=== PATIENT | female | born 1950 | race Caucasian/White ===

== ENCOUNTER 2021-05-14 13:39 | Inpatient (IN) | payer MEDICARE, BC ==
[~2021-05-14] VITALS: Ht 167.6 cm; Wt 166.0 kg
[2021-05-14] MEDS ORDERED: normal saline 1000ml 1,000 ML IV ONE (16:35)
[2021-05-14] MEDS ORDERED: metroNIDAZOLE-Flagyl 500mg/NS 100 ML IV ONE (16:40)
[2021-05-14] MEDS ORDERED: levoFLOXACIN-Levaquin 250mg/D5 50 ML IV ONE ×2 (16:40→17:05)
[2021-05-14 17:00] LABS: CLARITY,URINE CLEAR (Clear); COLOR,URINE YELLOW (Yellow); GLUCOSE, URINE NEGATIVE (Neg); KETONES,URINE 15 mg/dl (Neg); LEUKOCYTE ESTERASE ,URINE NEGATIVE (Neg); NITRITES, URINE NEGATIVE (Neg); OCCULT BLOOD,URINE NEGATIVE (Neg); PH,URINE 5.5 (4.8-8.0); PROTEIN,URINE NEGATIVE (Neg); UROBILINOGEN,URINE 0.2 E.U/dL (0.2-1.0)
[2021-05-14 17:01] LABS: UA COLLECTION TYPE VOIDED
[2021-05-14 17:08] LABS: BASOPHILS % (AUTO) 0.2 % (0-1); EOSINOPHILS % (AUTO) 0.1 % (0-6); HEMATOCRIT 40.4 % (35.0-45.0); HEMOGLOBIN 13.3 g/dl (12.0-16.0); LYMPHOCYTES # (AUTO) 0.8 X10'3 (1.1-4.8); LYMPHOCYTES % (AUTO) 4.4 % (21-51); MEAN CORPUSCULAR HEMOGLOBIN 31.1 PG (27.0-31.0); MEAN CORPUSCULAR VOLUME 94.1 FL (78-98); MEAN PLATELET VOLUME 8.6 FL (7.4-10.4); MONOCYTES # (AUTO) 1.3 X10'3 (0-0.9); MONOCYTES % (AUTO) 7.1 % (2-12); NEUTROPHILS # (AUTO) 15.5 X10'3 (1.8-7.7); NEUTROPHILS % (AUTO) 88.2 % (42-75); PLATELET COUNT 352 X10'3 (140-440); RED BLOOD COUNT 4.29 X10'6 (4.20-5.60); WHITE BLOOD COUNT 17.6 X10'3 (4.5-11.0)
[2021-05-14 17:17] LABS: ALANINE AMINOTRANSFERASE 43 U/L (12-78); ALBUMIN/GLOBULIN RATIO 1.1 (1.1-1.5); ALKALINE PHOSPHATASE 66 IU/L (46-116); ANION GAP 16 (8-16); ASPARTATE AMINO TRANSFERASE 24 U/L (10-37); BLOOD UREA NITROGEN 23 MG/DL (7-18); BUN/CREATININE RATIO 14.6 (6.6-38.0); CALCIUM 8.4 MG/DL (8.5-10.1); CHLORIDE 102 MMOL/L (99-107); CREATININE 1.58 MG/DL (0.40-0.90); GLUCOSE 133 MG/DL (70-104); LIPASE 57 U/L (73-393); POTASSIUM 3.2 MMOL/L (3.5-5.1); SODIUM 142 MMOL/L (135-145); TOTAL PROTEIN 7.7 G/DL (6.4-8.2); eGFR 32 ML/MIN
[2021-05-14 17:30] LABS: BILIRUBIN,TOTAL 0.6 MG/DL (0.1-1.0)
[2021-05-14] MEDS ORDERED: potassium Cl 40 mEq/0.45% sodium chloride IV soln 520ml IV ONE (17:35)
[2021-05-14] MEDS ORDERED: ATEN-169 PO (17:42)
[2021-05-14] MEDS ORDERED: LOSA100T57 PO (17:42)
[2021-05-14] MEDS ORDERED: AMLO5TAB4 PO (17:42)
[2021-05-14] MEDS ORDERED: ATOR20TA PO (17:42)
[2021-05-14] MEDS ORDERED: LOP12.5T PO (17:42)
[2021-05-14] MEDS ORDERED: potassium Cl 40MEQ/1/2NS 520ml 520 ML IV ONE (17:45)
[2021-05-14] MEDS ORDERED: HYDR25TA5 PO (17:52)
[2021-05-14 18:30] LABS: PARTIAL THROMBOPLASTIN TIME 22 SECONDS (22-32)
[2021-05-14] MEDS ORDERED: ondansetron/PF 4mg/2ml inj IV PRN ×3 (19:25→23:50)
[2021-05-14] MEDS ORDERED: acetaminophen 325mg tablet PO PRN (19:25)
[2021-05-14] MEDS ORDERED: potassium Cl 40MEQ/1/2NS 520ml 520 ML IV PRN ×2 (19:25)
[2021-05-14] MEDS ORDERED: morphine 2 MG/ML inj. syringe IV PRN ×3 (19:25→22:40)
[2021-05-14] MEDS ORDERED: sevoflurane 250ml liquid IH ONE (19:55)
[2021-05-14] MEDS ORDERED: neostigmine methylsulfate 1 MG/ML 10ml vial ONE (19:55)
[2021-05-14] MEDS ORDERED: glycopyrrolate 0.2mg/ml inj ONE (19:55)
[2021-05-14] MEDS ORDERED: levoFLOXACIN-Levaquin 750MG/D5 150 ML IV STA (19:59)
[2021-05-14] MEDS: K and/or MAG REPLACEMENT MC SCH (20:00)
[2021-05-14] MEDS ORDERED: fentaNYL /PF 50mcg/ml 5ml ampule ONE (20:02)
[2021-05-14] MEDS ORDERED: midazolam 1 mg/ML 2ml injection ONE ×2 (20:02→20:11)
[2021-05-14] MEDS ORDERED: dexamethasone sod phosphate 4mg/ml inj. ONE (20:04)
[2021-05-14] MEDS ORDERED: LIDOcaine 2% (20mg/ml) 5ml vial ONE (20:04)
[2021-05-14] MEDS ORDERED: propofol inj 20 ML IV ONE (20:04)
[2021-05-14] MEDS ORDERED: rocuronium 10mg/ml inj IV ONE ×2 (20:04→23:13)
[2021-05-14] MEDS ORDERED: ondansetron/PF 4mg/2ml inj ONE (20:27)
[2021-05-14] MEDS ORDERED: INDOCYANINE GREEN 25 MG/10 ML VIAL IV ONE (22:20)
[2021-05-14] MEDS ORDERED: proCHLORperazine 10 MG/2 ml inj IV PRN (22:40)
[2021-05-14] MEDS ORDERED: meperidine/PF 25mg/ml syringe IV PRN ×3 (22:40)
[2021-05-14] MEDS ORDERED: morphine 4 MG/ML inj SYRINge IV PRN (22:40)
[2021-05-14] MEDS ORDERED: ringers solution, lacted 1,000 ML IV SCH (22:40)
[2021-05-14] MEDS ORDERED: BUPIVAcaine 0.5% inj/PF 30 ML ONE (23:10)
[2021-05-14] MEDS ORDERED: acetaminophen 1,000mg/100ml IV 100 ML IV ONE (23:12)
--- NOTE | 2021-05-14 23:45 | NUR ---
ASSUME CARE PT AROUSABLE TO NAME VSS NO DISTRESS, ABD DRESSING CDI WITH TYLER TO SUCTION. CONT TO MONTIOR Addendum: 05/15/21 at 0015 by Pricila Sams RN Amended: Links added.
[2021-05-14 23:55] VITALS: BP 97/40
[2021-05-15] VITALS (15 sets, daily range): BP systolic 101–115; BP diastolic 43–80
[2021-05-15] MEDS ORDERED: metroNIDAZOLE-Flagyl 500mg/NS 100 ML IV SCH
--- NOTE | 2021-05-15 00:18 | NUR ---
PT MORE AWAKE FAMILY AT BEDSIDE UPDATED ON PLAN OF CARE AND ROOM # PROVIDED. PT STATES PAIN TO ABD 02/01 MED WITH DEMEROL 25MG NO OTHER CHANGES CONT TO MONITOR. Addendum: 05/15/21 at 0019 by Pricila Sams RN Amended: Links added.
--- NOTE | 2021-05-15 00:23 | NUR ---
PT DENIES PAIN VSS NO DISTRESS EMPTY 100ML SERSANG FLUID FROM TYLER, PT MEETS CRITERIA TO DC TO HER ROOM REPORT CALLED TO MAYELIN PECK. Addendum: 05/15/21 at 0024 by Pricila Sams RN Amended: Links added.
[2021-05-15] MEDS: potassium Cl 20mEq in NS 1,000 ML IV SCH ×4 (01:20→21:23)
[2021-05-15 06:24] LABS: BASOPHILS % (AUTO) 0.1 % (0-1); EOSINOPHILS % (AUTO) 0 % (0-6); HEMATOCRIT 33.7 % (35.0-45.0); HEMOGLOBIN 11.4 g/dl (12.0-16.0); LYMPHOCYTES # (AUTO) 0.4 X10'3 (1.1-4.8); LYMPHOCYTES % (AUTO) 2.9 % (21-51); MEAN CORPUSCULAR HEMOGLOBIN 31.6 PG (27.0-31.0); MEAN CORPUSCULAR HGB CONC 33.9 g/dL (33.0-36.5); MEAN CORPUSCULAR VOLUME 93.4 FL (78-98); MEAN PLATELET VOLUME 9.1 FL (7.4-10.4); MONOCYTES # (AUTO) 1.2 X10'3 (0-0.9); NEUTROPHILS # (AUTO) 13.3 X10'3 (1.8-7.7); PLATELET COUNT 267 X10'3 (140-440); RED BLOOD COUNT 3.61 X10'6 (4.20-5.60); RED CELL DISTRIBUTION WIDTH 13.9 % (11.5-14.5); WHITE BLOOD COUNT 14.9 X10'3 (4.5-11.0)
[2021-05-15 06:28] LABS: ALANINE AMINOTRANSFERASE 37 U/L (12-78); ALBUMIN 2.8 G/DL (3.4-5.0); ALBUMIN/GLOBULIN RATIO 0.8 (1.1-1.5); ALKALINE PHOSPHATASE 49 IU/L (46-116); ANION GAP 14 (8-16); ASPARTATE AMINO TRANSFERASE 21 U/L (10-37); BILIRUBIN,TOTAL 0.8 MG/DL (0.1-1.0); BLOOD UREA NITROGEN 19 MG/DL (7-18); BUN/CREATININE RATIO 14.3 (6.6-38.0); CALCIUM 7.4 MG/DL (8.5-10.1); CHLORIDE 107 MMOL/L (99-107); CREATININE 1.33 MG/DL (0.40-0.90); GLUCOSE 176 MG/DL (70-104); SODIUM 142 MMOL/L (135-145); TOTAL CARBON DIOXIDE 21.3 MMOL/L (24-32); TOTAL PROTEIN 6.1 G/DL (6.4-8.2); eGFR 39 ML/MIN
--- NOTE | 2021-05-15 07:33 | NUR ---
Patient in room [facility] 358. I have received report from Grace PECK and had the opportunity to ask questions and assume patient care.
[2021-05-15] MEDS: amLODIPine 5mg tablet PO SCH (08:00)
[2021-05-15] MEDS: atenolol 50mg tablet PO SCH (08:00)
[2021-05-15] MEDS ORDERED: levoFLOXACIN-Levaquin 500mg/D5 100 ML IV SCH (08:00)
[2021-05-15] MEDS: losartan 50mg tablet PO SCH (08:00)
[2021-05-15] MEDS: K and/or MAG REPLACEMENT MC SCH ×2 (08:00→20:00)
[2021-05-15] MEDS ORDERED: levoFLOXACIN-Levaquin 750MG/D5 150 ML IV SCH (08:00)
[2021-05-15] MEDS: metoprolol tartrate 25mg tablet PO SCH (08:00)
[2021-05-15] MEDS: HYDROmorphone inj. 0.5 MG/0.5 ML DISP.SYRIN IV PRN ×4 (08:25→23:31)
[2021-05-15] MEDS: metroNIDAZOLE-Flagyl 500mg/NS 100 ML IV SCH ×4 (08:25→23:31)
--- NOTE | 2021-05-15 18:48 | NUR ---
Problems reprioritized. Patient report given, questions answered & plan of care reviewed with Saige PECK.
--- NOTE | 2021-05-15 18:50 | NUR ---
Patient in room [facility] 358. I have received report from Mimi PECK and had the opportunity to ask questions and assume patient care.
[2021-05-15] MEDS: lactobacillus rhamnosus 10,000 MMU CELLS/CAPSULE PO SCH (21:15)
--- NOTE | 2021-05-15 22:00 | NUR ---
Patient voided in the toilet. Unfortunately missed the hat, but post void residual only 22cc.
[2021-05-16] VITALS: BP 104/50
[2021-05-16] MEDS: HYDROmorphone inj. 0.5 MG/0.5 ML DISP.SYRIN IV PRN ×5 (03:54→21:29)
[2021-05-16] MEDS: potassium Cl 20mEq in NS 1,000 ML IV SCH ×2 (05:46→20:03)
[2021-05-16 06:49] LABS: ALANINE AMINOTRANSFERASE 22 U/L (12-78); ALBUMIN 2.5 G/DL (3.4-5.0); ALBUMIN/GLOBULIN RATIO 0.8 (1.1-1.5); ALKALINE PHOSPHATASE 55 IU/L (46-116); ANION GAP 10 (8-16); ASPARTATE AMINO TRANSFERASE 11 U/L (10-37); BILIRUBIN,TOTAL 0.4 MG/DL (0.1-1.0); BLOOD UREA NITROGEN 15 MG/DL (7-18); BUN/CREATININE RATIO 12.5 (6.6-38.0); CALCIUM 7.5 MG/DL (8.5-10.1); CHLORIDE 113 MMOL/L (99-107); GLUCOSE 115 MG/DL (70-104); POTASSIUM 4.2 MMOL/L (3.5-5.1); SODIUM 144 MMOL/L (135-145); TOTAL CARBON DIOXIDE 21.3 MMOL/L (24-32); TOTAL PROTEIN 5.7 G/DL (6.4-8.2); eGFR 44 ML/MIN
--- NOTE | 2021-05-16 06:50 | NUR ---
Problems reprioritized. Patient report given, questions answered & plan of care reviewed with Radu PECK.
[2021-05-16 06:55] LABS: BASOPHILS % (AUTO) 0.1 % (0-1); EOSINOPHILS % (AUTO) 0.2 % (0-6); HEMATOCRIT 30.7 % (35.0-45.0); HEMOGLOBIN 10.1 g/dl (12.0-16.0); LYMPHOCYTES # (AUTO) 0.9 X10'3 (1.1-4.8); LYMPHOCYTES % (AUTO) 8.4 % (21-51); MEAN CORPUSCULAR HEMOGLOBIN 31.7 PG (27.0-31.0); MEAN CORPUSCULAR HGB CONC 33.1 g/dL (33.0-36.5); MEAN CORPUSCULAR VOLUME 95.7 FL (78-98); MEAN PLATELET VOLUME 9.2 FL (7.4-10.4); MONOCYTES # (AUTO) 1.5 X10'3 (0-0.9); MONOCYTES % (AUTO) 13.9 % (2-12); NEUTROPHILS # (AUTO) 8.6 X10'3 (1.8-7.7); NEUTROPHILS % (AUTO) 77.4 % (42-75); PLATELET COUNT 250 X10'3 (140-440); RED BLOOD COUNT 3.21 X10'6 (4.20-5.60); RED CELL DISTRIBUTION WIDTH 14.2 % (11.5-14.5); WHITE BLOOD COUNT 11.1 X10'3 (4.5-11.0)
[2021-05-16 07:52] VITALS: BP 113/53
[2021-05-16] MEDS: K and/or MAG REPLACEMENT MC SCH ×2 (08:00→19:49)
[2021-05-16] MEDS: metroNIDAZOLE-Flagyl 500mg/NS 100 ML IV SCH ×2 (08:57→17:17)
[2021-05-16] MEDS: lactobacillus rhamnosus 10,000 MMU CELLS/CAPSULE PO SCH ×2 (08:57→20:02)
[2021-05-16 11:49] VITALS: BP 128/61
[2021-05-16] MEDS: atenolol 50mg tablet PO SCH (13:11)
[2021-05-16] MEDS: metoprolol tartrate 25mg tablet PO SCH (13:11)
[2021-05-16] MEDS: losartan 50mg tablet PO SCH (13:12)
[2021-05-16] MEDS: levoFLOXACIN-Levaquin 250mg/D5 50 ML IV SCH (13:12)
[2021-05-16] MEDS: amLODIPine 5mg tablet PO SCH (13:12)
[2021-05-16] MEDS ORDERED: furosemide 20 MG/2 ML vial IV ONE (13:30)
[2021-05-16] MEDS ORDERED: mag hydrox/Alum hydrox/simeth 30ml oral suspension PO PRN (13:30)
--- NOTE | 2021-05-16 18:30 | NUR ---
Patient in room [facility] 358. I have received report from Radu PECK and had the opportunity to ask questions and assume patient care.
[2021-05-16 19:00] VITALS: BP 123/59
[2021-05-17] VITALS: BP 123/60
[2021-05-17] MEDS: metroNIDAZOLE-Flagyl 500mg/NS 100 ML IV SCH ×3 (00:26→16:25)
[2021-05-17] MEDS: HYDROmorphone inj. 0.5 MG/0.5 ML DISP.SYRIN IV PRN ×5 (01:48→20:53)
[2021-05-17 06:27] LABS: BASOPHILS % (AUTO) 0.1 % (0-1); EOSINOPHILS # (AUTO) 0.1 X10'3 (0-0.9); EOSINOPHILS % (AUTO) 0.6 % (0-6); HEMATOCRIT 32.2 % (35.0-45.0); HEMOGLOBIN 10.9 g/dl (12.0-16.0); LYMPHOCYTES # (AUTO) 1.1 X10'3 (1.1-4.8); LYMPHOCYTES % (AUTO) 10.9 % (21-51); MEAN CORPUSCULAR HEMOGLOBIN 31.8 PG (27.0-31.0); MEAN CORPUSCULAR HGB CONC 33.8 g/dL (33.0-36.5); MEAN CORPUSCULAR VOLUME 94.3 FL (78-98); MEAN PLATELET VOLUME 8.8 FL (7.4-10.4); MONOCYTES # (AUTO) 1.3 X10'3 (0-0.9); NEUTROPHILS # (AUTO) 7.7 X10'3 (1.8-7.7); NEUTROPHILS % (AUTO) 75.4 % (42-75); PLATELET COUNT 261 X10'3 (140-440); RED BLOOD COUNT 3.42 X10'6 (4.20-5.60); RED CELL DISTRIBUTION WIDTH 14.2 % (11.5-14.5); WHITE BLOOD COUNT 10.2 X10'3 (4.5-11.0)
[2021-05-17 06:43] LABS: ALANINE AMINOTRANSFERASE 17 U/L (12-78); ALBUMIN 2.2 G/DL (3.4-5.0); ALBUMIN/GLOBULIN RATIO 0.6 (1.1-1.5); ALKALINE PHOSPHATASE 56 IU/L (46-116); ANION GAP 11 (8-16); ASPARTATE AMINO TRANSFERASE 11 U/L (10-37); BILIRUBIN,TOTAL 0.5 MG/DL (0.1-1.0); BLOOD UREA NITROGEN 13 MG/DL (7-18); BUN/CREATININE RATIO 11.7 (6.6-38.0); CHLORIDE 111 MMOL/L (99-107); CREATININE 1.11 MG/DL (0.40-0.90); GLUCOSE 104 MG/DL (70-104); POTASSIUM 3.7 MMOL/L (3.5-5.1); SODIUM 143 MMOL/L (135-145); TOTAL CARBON DIOXIDE 21.4 MMOL/L (24-32); TOTAL PROTEIN 5.6 G/DL (6.4-8.2); eGFR 48 ML/MIN
--- NOTE | 2021-05-17 06:50 | NUR ---
Problems reprioritized. Patient report given, questions answered & plan of care reviewed with Dori PECK.
[2021-05-17 07:30] VITALS: BP 116/33
[2021-05-17] MEDS: losartan 50mg tablet PO SCH (08:00)
[2021-05-17] MEDS: amLODIPine 5mg tablet PO SCH (08:00)
[2021-05-17] MEDS: K and/or MAG REPLACEMENT MC SCH ×2 (08:00→20:00)
[2021-05-17] MEDS: metoprolol tartrate 25mg tablet PO SCH (08:00)
[2021-05-17] MEDS: atenolol 50mg tablet PO SCH (08:00)
[2021-05-17] MEDS: lactobacillus rhamnosus 10,000 MMU CELLS/CAPSULE PO SCH ×2 (08:11→20:52)
[2021-05-17] MEDS ORDERED: pneumococcal 23-VAL P-sac vacc 25 mcg/0.5ml vial IMVAC ONE (10:00)
[2021-05-17] MEDS: levoFLOXACIN-Levaquin 250mg/D5 50 ML IV SCH (10:08)
[2021-05-17 12:10] VITALS: BP 116/43
[2021-05-17 18:00] VITALS: BP 143/55
--- NOTE | 2021-05-17 18:18 | NUR ---
Problems reprioritized. Patient report given, questions answered & plan of care reviewed with LIV Rosado.
--- NOTE | 2021-05-17 18:30 | NUR ---
Patient in room [facility] 358. I have received report from TIESHA PECK and had the opportunity to ask questions and assume patient care.
[2021-05-18] VITALS: BP 120/58
[2021-05-18] MEDS: metroNIDAZOLE-Flagyl 500mg/NS 100 ML IV SCH ×3 (00:25→17:15)
[2021-05-18] MEDS: HYDROmorphone inj. 0.5 MG/0.5 ML DISP.SYRIN IV PRN ×2 (01:04→05:09)
[2021-05-18 05:58] LABS: BASOPHILS % (AUTO) 0.3 % (0-1); EOSINOPHILS # (AUTO) 0.2 X10'3 (0-0.9); EOSINOPHILS % (AUTO) 1.9 % (0-6); HEMATOCRIT 33.3 % (35.0-45.0); LYMPHOCYTES # (AUTO) 1.6 X10'3 (1.1-4.8); LYMPHOCYTES % (AUTO) 19.2 % (21-51); MEAN CORPUSCULAR HEMOGLOBIN 31.5 PG (27.0-31.0); MEAN CORPUSCULAR VOLUME 95.4 FL (78-98); MEAN PLATELET VOLUME 8.7 FL (7.4-10.4); MONOCYTES # (AUTO) 1.3 X10'3 (0-0.9); MONOCYTES % (AUTO) 15.3 % (2-12); NEUTROPHILS # (AUTO) 5.3 X10'3 (1.8-7.7); NEUTROPHILS % (AUTO) 63.3 % (42-75); PLATELET COUNT 268 X10'3 (140-440); RED BLOOD COUNT 3.49 X10'6 (4.20-5.60); RED CELL DISTRIBUTION WIDTH 14.2 % (11.5-14.5); WHITE BLOOD COUNT 8.3 X10'3 (4.5-11.0)
[2021-05-18 06:07] LABS: ALANINE AMINOTRANSFERASE 16 U/L (12-78); ALBUMIN 2.3 G/DL (3.4-5.0); ALBUMIN/GLOBULIN RATIO 0.7 (1.1-1.5); ALKALINE PHOSPHATASE 50 IU/L (46-116); ANION GAP 12 (8-16); ASPARTATE AMINO TRANSFERASE 10 U/L (10-37); BILIRUBIN,TOTAL 0.4 MG/DL (0.1-1.0); BLOOD UREA NITROGEN 10 MG/DL (7-18); CALCIUM 8.1 MG/DL (8.5-10.1); CHLORIDE 111 MMOL/L (99-107); GLUCOSE 102 MG/DL (70-104); POTASSIUM 3.7 MMOL/L (3.5-5.1); SODIUM 145 MMOL/L (135-145); TOTAL CARBON DIOXIDE 21.8 MMOL/L (24-32); TOTAL PROTEIN 5.5 G/DL (6.4-8.2); eGFR 55 ML/MIN
--- NOTE | 2021-05-18 06:13 | NUR ---
Problems reprioritized. Patient report given, questions answered & plan of care reviewed with VALERIO PECK.
--- NOTE | 2021-05-18 06:45 | NUR ---
Patient in room [facility] 358B. I have received report from JANE LARA RN and had the opportunity to ask questions and assume patient care.
[2021-05-18 07:00] VITALS: BP 126/69
[2021-05-18] MEDS: atenolol 50mg tablet PO SCH (08:00)
[2021-05-18] MEDS: amLODIPine 5mg tablet PO SCH (08:00)
[2021-05-18] MEDS: losartan 50mg tablet PO SCH (08:00)
[2021-05-18] MEDS: K and/or MAG REPLACEMENT MC SCH ×2 (08:00→20:00)
[2021-05-18] MEDS: metoprolol tartrate 25mg tablet PO SCH (08:00)
[2021-05-18] MEDS: lactobacillus rhamnosus 10,000 MMU CELLS/CAPSULE PO SCH ×2 (08:04→21:41)
[2021-05-18] MEDS: HYDROcodone/acetaminophen 10/325mg tab PO PRN ×4 (08:16→21:42)
--- NOTE | 2021-05-18 08:23 | NUR ---
PATIENT REFUSED HEART MEDS, [facility] PAGER ID: [phone] MESSAGE: [place] PavonB: NAVEEN PATIENT REFUSED ALL HEART MEDS
[2021-05-18 11:00] VITALS: BP 122/65
[2021-05-18] MEDS: levoFLOXACIN-Levaquin 250mg/D5 50 ML IV SCH (11:22)
[2021-05-18 18:00] VITALS: BP 124/57
--- NOTE | 2021-05-18 18:45 | NUR ---
Problems reprioritized. Patient report given, questions answered & plan of care reviewed with JANE LARA RN.
--- NOTE | 2021-05-18 18:46 | NUR ---
Patient in room [facility] 358. I have received report from VALERIO PECK and had the opportunity to ask questions and assume patient care.
[2021-05-18] MEDS: potassium Cl 20mEq in NS 1,000 ML IV SCH (21:45)
[2021-05-19] VITALS: BP 140/67
[2021-05-19] MEDS: metroNIDAZOLE-Flagyl 500mg/NS 100 ML IV SCH ×3 (01:35→16:00)
[2021-05-19] MEDS: HYDROcodone/acetaminophen 10/325mg tab PO PRN ×4 (01:38→15:21)
[2021-05-19 06:10] LABS: BASOPHILS % (AUTO) 0.4 % (0-1); EOSINOPHILS # (AUTO) 0.2 X10'3 (0-0.9); HEMATOCRIT 33.2 % (35.0-45.0); HEMOGLOBIN 10.9 g/dl (12.0-16.0); LYMPHOCYTES # (AUTO) 1.5 X10'3 (1.1-4.8); LYMPHOCYTES % (AUTO) 20.8 % (21-51); MEAN CORPUSCULAR HEMOGLOBIN 31.3 PG (27.0-31.0); MEAN CORPUSCULAR HGB CONC 32.8 g/dL (33.0-36.5); MEAN CORPUSCULAR VOLUME 95.4 FL (78-98); MEAN PLATELET VOLUME 8.6 FL (7.4-10.4); MONOCYTES # (AUTO) 1.2 X10'3 (0-0.9); MONOCYTES % (AUTO) 15.8 % (2-12); NEUTROPHILS # (AUTO) 4.4 X10'3 (1.8-7.7); PLATELET COUNT 271 X10'3 (140-440); RED BLOOD COUNT 3.48 X10'6 (4.20-5.60); RED CELL DISTRIBUTION WIDTH 13.9 % (11.5-14.5); WHITE BLOOD COUNT 7.3 X10'3 (4.5-11.0)
[2021-05-19 06:17] LABS: ALANINE AMINOTRANSFERASE 16 U/L (12-78); ALBUMIN 2.1 G/DL (3.4-5.0); ALBUMIN/GLOBULIN RATIO 0.7 (1.1-1.5); ALKALINE PHOSPHATASE 37 IU/L (46-116); ANION GAP 9 (8-16); ASPARTATE AMINO TRANSFERASE 11 U/L (10-37); BILIRUBIN,TOTAL 0.2 MG/DL (0.1-1.0); BLOOD UREA NITROGEN 9 MG/DL (7-18); BUN/CREATININE RATIO 9.2 (6.6-38.0); CALCIUM 7.7 MG/DL (8.5-10.1); CHLORIDE 110 MMOL/L (99-107); CREATININE 0.98 MG/DL (0.40-0.90); GLUCOSE 112 MG/DL (70-104); POTASSIUM 3.4 MMOL/L (3.5-5.1); SODIUM 142 MMOL/L (135-145); TOTAL CARBON DIOXIDE 23.5 MMOL/L (24-32); TOTAL PROTEIN 5.3 G/DL (6.4-8.2); eGFR 56 ML/MIN
--- NOTE | 2021-05-19 06:30 | NUR ---
Problems reprioritized. Patient report given, questions answered & plan of care reviewed with VALERIO PECK.
--- NOTE | 2021-05-19 06:47 | NUR ---
Patient in room [facility] 358B. I have received report from JANE LARA RN and had the opportunity to ask questions and assume patient care.
[2021-05-19 07:00] VITALS: BP 151/71
[2021-05-19] MEDS: K and/or MAG REPLACEMENT MC SCH (08:00)
[2021-05-19] MEDS ORDERED: LEVO500T89 PO (09:44)
[2021-05-19] MEDS ORDERED: METR-159 PO (09:44)
[2021-05-19] MEDS ORDERED: HYDR-3965 PO (09:44)
[2021-05-19] MEDS: losartan 50mg tablet PO SCH (09:54)
[2021-05-19] MEDS: lactobacillus rhamnosus 10,000 MMU CELLS/CAPSULE PO SCH (09:54)
[2021-05-19] MEDS: metoprolol tartrate 25mg tablet PO SCH (09:54)
[2021-05-19 11:00] VITALS: BP 132/66
--- NOTE | 2021-05-19 12:08 | NUR ---
Initial: Pt admitted for repair of colonic perforation caused by recent colonoscopy per EMR. Pt underwent laparoscopic repair 05/14. Pt was eating 100% of Full liquid diet on 05/17 and was advanced to Regular diet 05/18, able to eat 50% for lunch and dinner. Pending further PO trends today. No N/V/D noted, LBM 05/18. Will continue to monitor PO trends and make recommendations as appropriate. Recs 1. Continue Regular diet as tolerated, encourage intake 2. Bowel care per rx 3. Weekly wts Addendum: 05/19/21 at [address] Amended: Links added.
[2021-05-19] MEDS: levoFLOXACIN-Levaquin 250mg/D5 50 ML IV SCH (12:18)
--- NOTE | 2021-05-19 18:15 | NUR ---
PATIENT STABLE AND APPROPRIATE FOR DISCHARGE, IV TAKEN OUT, TYLER DRAIN TAKEN OUT, NEW MEDS E-SCRIPTED TO PREFERRED PHARMACY, PATIENT SENT HOME WITH DRESSING CHANGE ITEMS FOR TYLER SITE, EDUCATION GIVEN, ALL BELONGINGS SENT WITH PATIENT, PATIENT TAKEN TO LOBBY BY WHEELCHAIR TO AN AWAITING CAR WHERE SON WILL TAKE PATIENT HOME
== END 2021-05-19 18:15 | disposition home health service (06) | DRG 853 ==
LOC: ER 13:40 → ED HOLD 19:28 → SUR 3N 05-15 00:30
PROVIDERS: ADMIT Internal Medicine; ATTEND Internal Medicine
PROC: 8E0W4CZ Robotic Assisted Procedure of Trunk Region, Percutaneous Endoscopic Approach (ICD-10-PCS; 2021-05-14)
PROC: 0DBF4ZZ Excision of Right Large Intestine, Percutaneous Endoscopic Approach (ICD-10-PCS; principal; 2021-05-14 19:55)
PROC: 3E0234Z Introduction of Serum, Toxoid and Vaccine into Muscle, Percutaneous Approach (ICD-10-PCS; 2021-05-17)
DX: A41.9 Sepsis, unspecified organism (principal); K63.1 Perforation of intestine (nontraumatic); K65.9 Peritonitis, unspecified; K56.7 Ileus, unspecified; I12.9 Hypertensive chronic kidney disease with stage 1 through stage 4 chronic kidney disease, or unspecified chronic kidney disease; Z66 Do not resuscitate; Z20.822 Contact with and (suspected) exposure to COVID-19; D64.9 Anemia, unspecified; N18.30 Chronic kidney disease, stage 3 unspecified; Z80.0 Family history of malignant neoplasm of digestive organs; Z87.19 Personal history of other diseases of the digestive system; Z90.710 Acquired absence of both cervix and uterus; Z23 Encounter for immunization; Z79.899 Other long term (current) drug therapy; Z88.0 Allergy status to penicillin
CPT/HCPCS: 36415; 71045; 74176; 80053; 81003; 83690; 84484; 85025; 85610; 85730; 86885; 86900; 86901; 87081; 87635; 88307; 90732; 93005; 96365; 96368; 99285; A4215; A4618; A6402; C1758; C9803; G0378; J0131; J1100; J1170; J1940; J1956; J2001; J2250; J2405; J2704; J2710; J3010; J3480; J3490; J7030; J7120